=== PATIENT | male | born 1990 | race Caucasian/White ===

== ENCOUNTER 2017-12-05 18:36 | Inpatient (IN) | payer OTHER ==
[~2017-12-05] VITALS: Ht 175.3 cm; Wt 63.5 kg
--- NOTE | 2017-12-05 19:55 | NUR ---
PRE ADMISSION NOTE Pt is a 27 y/o male seen at intake. Pt is A&O x 4 and ambulatory with steady gait. Pt is here for ETOH (beer) 12 pack or more daily, Xanax 6 mg daily, methamphetamine 2-3 g daily, heroin IV or smoke 2 g daily. Pt has been using these substances for 1 month. Pt reports using meth, Xanax and drinking beer this morning, but last intake of heroin was last night around 1999. Pt denies allergies. Reports PMH of seizure r/t withdrawal from Xanax, Anxiety, and Depression. Pt reports taking Seroquel 100 mg, but denies brining any home medications. Vitals: BP 113/76, HR 105, 02 98%, RR 19, Pain 6/10 (generalized). Pt is stable. Will continue care of patient upon arrival on unit.
[2017-12-05] MEDS ORDERED: diphenhydrAMINE 50 MG CAPSULE PO PRN (21:00)
[2017-12-05] MEDS ORDERED: MAGNESIUM HYDROXIDE 30 ML LIQUID UDC PO PRN (21:00)
[2017-12-05] MEDS ORDERED: CLONIDINE HCL 0.1 MG TABLET PO PRN (21:00)
[2017-12-05] MEDS ORDERED: MIRALAX 17 GM POWD.PACK PO PRN (21:00)
[2017-12-05] MEDS ORDERED: THIAMINE HCL 200 MG/2 ML VIAL IM ONE (21:00)
[2017-12-05] MEDS ORDERED: HYDROXYZINE PAMOATE 25 MG CAPSULE PO PRN (21:00)
[2017-12-05] MEDS ORDERED: IBUPROFEN 600 MG TABLET PO PRN (21:00)
[2017-12-05] MEDS ORDERED: LORAZEPAM 1 MG TABLET PO PRN ×2 (21:00→21:45)
[2017-12-05] MEDS ORDERED: ONDANSETRON ODT 4 MG TAB.RAPDIS SL PRN (21:00)
[2017-12-05] MEDS ORDERED: LOPERAMIDE HCL 2 MG CAPSULE PO PRN ×2 (21:00)
[2017-12-05] MEDS ORDERED: MAG HYDROX/AL HYDROX/SIMETH 30 ML LIQUID UDC PO PRN (21:00)
[2017-12-05] MEDS ORDERED: LORAZEPAM 2 MG/1 ML VIAL IM PRN (21:00)
[2017-12-05] MEDS ORDERED: QUET100T PO (21:19)
[2017-12-05 21:20] LABS: *AMPHETAMINE, URINE POSITIVE (NEGATIVE); *BARBITURATE, URINE NEGATIVE (NEGATIVE); *CANNABINOID, URINE NEGATIVE (NEGATIVE); *COCCAINE, URINE NEGATIVE (NEGATIVE); *OPIATE, URINE NEGATIVE (NEGATIVE); *PHENCYCLIDINE SCREEN,URINE NEGATIVE (NEGATIVE)
[2017-12-05 21:24] LABS: BASOPHILS # (AUTO) 0.1 K/uL (0.0-8.0); BASOPHILS % (AUTO) 0.7 % (0.0-2.0); EOSINOPHILS # (AUTO) 0.9 K/uL (0.0-0.7); EOSINOPHILS % (AUTO) 11.7 % (0.0-7.0); HEMATOCRIT 46.3 % (36.7-47.1); HEMOGLOBIN 15.9 g/dL (12.5-16.3); LYMPHOCYTES # (AUTO) 2.9 K/uL (20.0-40.0); LYMPHOCYTES % (AUTO) 37.3 % (20.5-51.5); MEAN CORPUSCULAR HEMOGLOBIN 31.7 uug (23.8-33.4); MEAN CORPUSCULAR HGB CONC 35 g/dL (32.5-36.3); MEAN CORPUSCULAR VOLUME 91.9 fL (73.0-96.2); MONOCYTES # (AUTO) 0.7 K/uL (2.0-10.0); MONOCYTES % (AUTO) 9.5 % (0.0-11.0); NEUTROPHILS # (AUTO) 3.2 K/uL (1.8-8.9); NEUTROPHILS % (AUTO) 40.8 % (38.5-71.5); PLATELET COUNT (AUTO) 261 K/uL (152-348); RED BLOOD CELL COUNT(AUTO) 5.03 MIL/uL (4.06-5.63); WHITE BLOOD COUNT (AUTO) 7.9 K/uL (3.6-10.2)
[2017-12-05] MEDS ORDERED: BUPRENORPHINE HCL 2 MG TAB.SUBL SL PRN (21:45)
[2017-12-05] MEDS ORDERED: METHOCARBAMOL 750 MG TABLET PO PRN (21:45)
[2017-12-05 21:47] LABS: ALANINE AMINOTRANSFERASE 25 U/L (16-63); ALKALINE PHOSPHATASE 75 U/L (50-136); AMYLASE 38 U/L (25-115); ASPARTATE AMINOTRANSFERASE 24 U/L (15-37); BILIRUBIN,TOTAL 0.9 mg/dL (0.2-1.0); CARBON DIOXIDE 27 mmol/L (21-32); CHLORIDE 101 mmol/L (98-107); CREATININE 1.1 mg/dL (0.6-1.3); GLUCOSE 84 mg/dL (74-106); LIPASE 137 U/L (73-393); MAGNESIUM 2.5 mg/dL (1.8-2.4); POTASSIUM 3.7 mmol/L (3.5-5.1); TOTAL PROTEIN, SERUM 7.9 g/dL (6.4-8.2); UREA NITROGEN, BLOOD 20 mg/dL (7-18)
[2017-12-05 21:58] LABS: THYROID STIMULATING HORMONE 1.161 mIU/mL (0.358-3.740)
--- NOTE | 2017-12-05 22:00 | NUR ---
Admission note Patient is a 27 year old male who presents to [facility] for medically supervised withdrawal from ETOH/Benzo/Opiate . Patient requests for full code and regular diet. Patient reports PMH of Anxiety and Depression but he doesn't take any medication. Seizure history- last one was 2 years ago R/T withdrawal from Xanax. Overdose from Heroin a month ago, his friend gave him Narcan. Blackouts- at least once a month he states. Suicidal attempt when he was 24. He cut his wrist . No 5150 hold. No SI/HI. Patient states hes homeless. His mom is his support system. He is unemployed at this time. He was sober for 1 month then he relapsed a month ago. When asked why he is seeking for treatment, he states I dont want to , I dont want to go to group home and the only way I will live is if I get sober. The triggers for his relapsed was cravings, money, women and old friends thats using. The consequences of him using and drinking was he got arrested and he lost his car. Its not worth it , he states. He wants to stay sober , go to programs and get sponsor after this. Longest period of sobriety was 6 months 3 years ago. Substance History 1.Alcohol (beer)-started drinking at age 17. He drinks 12 pack 24 oz daily for a month . Last drink was 3-4 cans of 24oz of beer at 10am 2.Xanax started using at age 18. Patient takes 6 mg daily for a month. Last use was 6 mg on 12/05/17 3.Heroin (IV/Smoke)-started using at age 24. Patient smokes /injects 2 grams daily for a month. Last use was 2 grams on 12/04/17 at 8 PM 4. Methamphetamine (IV)-started using at age 19. Patient injects 2-3 grams daily for a month . Last use was 2 grams on 12/05/17 Treatment history [facility] Patient smokes 1 pack daily. He does not have PCP. Patient did not bring home medication but states hes taking Seroquel 100 mg for sleep. Typical withdrawal symptoms when hes is not using are nausea, difficulty sleeping , restless legs, hot and cold sweats and irritability. Patient refused pneumonia vaccine. UA provided and blood draw done. Patient presents with flat affect, worried, anxious, restless, generalized muscle aches, restless legs, hot and cold sweats, tremors, headache, pin and needles sensations, abdominal cramping and runny nose. COWS 15 and CIWA15. Encouraged fluids. Patient oriented to surroundings and how to use call light. Safety measures in place. Call light in reach. Will continue to monitor. Addendum: 12/06/17 at 1307 by BRAULIO NOONAN RN Clarification of Treatment History: Per patient, he was at [facility] from 10/24/17-11/24/17. States he was sober the entire time he was there. His substance use history as listed above is for 11 days, not 1 month.
--- NOTE | 2017-12-05 22:05 | NUR ---
COWS and CIWA assessment Patient presents with flat affect, worried, anxious, restless, generalized muscle aches, restless legs, hot and cold sweats, tremors, headache, pin and needles sensations, abdominal cramping and runny nose. COWS 15 and CIWA15.
--- NOTE | 2017-12-05 22:07 | NUR ---
PRN Robaxin, Motrin , Ativan and Subutex administration Patient presents with flat affect, worried, anxious, restless, generalized muscle aches, restless legs, hot and cold sweats, tremors, headache, pin and needles sensations, abdominal cramping and runny nose. COWS 15 and CIWA15.
[2017-12-05] MEDS: FOLIC ACID 1 MG TABLET PO SCH (22:08)
[2017-12-05] MEDS: MULTIVITAMINS,THERAPEUTIC TABLET PO SCH (22:09)
[2017-12-05] MEDS: THIAMINE HCL 100 MG TABLET PO SCH (22:09)
[2017-12-05 22:15] LABS: ETHANOL < 3 MG/DL (0-0)
--- NOTE | 2017-12-05 22:24 | NUR ---
One time Trazadone administration Patient requests for sleep aid. Will monitor for effectiveness
[2017-12-05] MEDS ORDERED: TRAZODONE 50 MG TABLET PO ONE (22:30)
--- NOTE | 2017-12-05 23:07 | NUR ---
PRN Robaxin, Motrin, Ativan and Subutex re-assessment Patient lying in bed with eyes closed. Respiration even and unlabored. No facial grimacing. Will monitor for effectiveness. CIWA deferred
--- NOTE | 2017-12-05 23:24 | NUR ---
PRN Trazadone re-assessment Patient lying in bed with eyes closed. Respiration even and unlabored. Will continue to monitor.
[2017-12-06] VITALS: BP 102/72
--- NOTE | 2017-12-06 | NUR ---
COWS and CIWA deferred Patient lying in bed with eyes closed. Respiration even and unlabored. Will continue to monitor.
[2017-12-06 04:00] VITALS: BP 109/67
--- NOTE | 2017-12-06 04:00 | NUR ---
COWS and CIWA deferred Patient lying in bed with eyes closed. Respiration even and unlabored. Will continue to monitor.
--- NOTE | 2017-12-06 07:21 | NUR ---
End of shift note Patient slept 6 hours. Fluid Intake 1,082 ml. Voided x 1. No BM. Monitored patient throughout shift. Patient presented with flat affect, worried, anxious, restless, generalized muscle aches, restless legs, hot and cold sweats, tremors, headache, pin and needles sensations, abdominal cramping and runny nose upon admission. PRN Motrin, Robaxin, Subutex and Ativan given. Last COWS 15 and CIWA 15.
--- NOTE | 2017-12-06 07:45 | NUR ---
START OF SHIFT Pt is a 27 yr old male, admitted on 12/05/17 for ETOH/Benzo/Opiate withdrawal and is to start of 5 day Valium taper as ordered. Received report from assembler 1st shift nurse. Pt received Ativan PRN, Motrin PRN,Robaxin PRN, Subutex PRN and Trazodone PRN during the night. Medication was effective Last COWS score was 15 and CIWA score was 15.Pt slept for 6 hrs and remains in bed sleeping with respirations even and unlabored. Skin is intact, warm and moist to touch. Pt is noted with multiple food wrappers and empty bottles of water at bed side table. Safety precautions observed. Will continue to monitor.
[2017-12-06 08:00] VITALS: BP 126/60
--- NOTE | 2017-12-06 08:20 | NUR ---
COWS AND CIWA ASSESSMENT Pt is c/o anxiety, agitation, restlessness, abdominal cramping, headache and sweats. Pt is observed fidgety. COWS score is 8 and CIWA score is 10. Will continue to monitor.
[2017-12-06] MEDS: THIAMINE HCL 100 MG TABLET PO SCH (08:55)
[2017-12-06] MEDS: MULTIVITAMINS,THERAPEUTIC TABLET PO SCH (08:55)
[2017-12-06] MEDS: BUPRENORPHINE HCL 2 MG TAB.SUBL SL SCH ×4 (08:55→20:26)
[2017-12-06] MEDS: FOLIC ACID 1 MG TABLET PO SCH (08:55)
[2017-12-06] MEDS ORDERED: 6 DAY PHENOBARBITAL TAPER -SERENITY PROTOCOL PO PRN (09:00)
[2017-12-06] MEDS ORDERED: PHENOBARBITAL 60 MG TABLET PO SCH (09:00)
[2017-12-06] MEDS ORDERED: TUBERCULIN,PURIF.PROT.DERIV. 5 TU/0.1 ML TEST ID ONE (09:00)
[2017-12-06] MEDS ORDERED: 5 DAY TAPER BUPRENORPHINE -SERENITY PROTOCOL SL PRN (09:00)
--- NOTE | 2017-12-06 09:00 | NUR ---
MEDICATION REFUSED Pt refused to take Phenobarbital 60mg PO as scheduled aty 0900. Pt states that he gets a reaction to the phenobarbital and starts to get an "itchy throat". Medication was held and was report to Dr. Reich. Will continue to f/u
[2017-12-06 12:00] VITALS: BP 106/50
[2017-12-06] MEDS ORDERED: 5 DAY TAPER VALIUM-SERENITY PROTOCOL PO PRN (12:30)
--- NOTE | 2017-12-06 12:35 | NUR ---
COWS AND CIWA ASSESSMENT Pt is c/o anxiety, agitation, restlessness, abdominal cramping, headache and sweats. Pt is observed fidgety. COWS score is 10 and CIWA score is 9. Phenobarbital taper was discontinued by Dr. Reich and is to start of 5 day Valium taper. Will continue to f/u.
[2017-12-06] MEDS: DIAZEPAM 10 MG TABLET PO SCH ×3 (13:17→20:26)
[2017-12-06 16:00] VITALS: BP 101/57
--- NOTE | 2017-12-06 19:15 | NUR ---
END OF SHIFT Pt is a 27 yr old male, AA&Ox4. pt was admitted on 12/05/17 for ETOH/Benzo/Opiate withdrawal and is on 5 day Valium and 5 day Subutex taper as ordered. Pt has been cooperative with medication regimen and plan of care. Pt was c/o anxiety, agitation, abdominal cramping, muscle aching, headache, restlessness, stuffy nose and teary eyes. No PRN's were given during the day. last COWS score was 8 and CIWA score was 5. Encouraged increase fluid intake for hydration. Endorsed to shift nurse manager nurse to continue with care.
--- NOTE | 2017-12-06 19:30 | NUR ---
Start of shift note Received report from day shift nurse. Patient is a 27 year old male admitted for ETOH/Benzo/Opiate withdrawal. Patient is on 5 day Valium and 5 day Subutex taper. Patient did not require PRN medication. Last COWS 8 and CIWA 5. Patient alert and oriented x 4. Patients room messy, snack wrappers and opened/spilled drinks on table. Patient presents with flat affect, anxious, restless, restless legs, irritable and agitation. Safety measures in place. Call light in reach. Will continue to monitor.
[2017-12-06 20:00] VITALS: BP 123/75
--- NOTE | 2017-12-06 20:00 | NUR ---
COWS and CIWA assessment Patient anxious, restless, restless legs, intermittent perspiration , tremors felt but not observed, irritable and agitation. COWS 9 and CIWA 9.
[2017-12-06] MEDS: QUETIAPINE FUMARATE 100 MG TABLET PO SCH (21:01)
[2017-12-07] VITALS: BP 124/88
--- NOTE | 2017-12-07 | NUR ---
COWS and CIWA deferred Patient lying in bed with eyes closed. Respiration even and unlabored. Will continue to monitor.
[2017-12-07 04:00] VITALS: BP 120/72
--- NOTE | 2017-12-07 04:00 | NUR ---
COWS and CIWA deferred Patient lying in bed with eyes closed. Respiration even and unlabored. Will continue to monitor.
--- NOTE | 2017-12-07 07:18 | NUR ---
End of shift note Patient slept 8 hours. Fluid intake 7 hours. Voided x 1. BM x 1. Patient presented with flat affect, anxious, restless, restless legs, irritable and agitation. Patient did not require PRN medication. Safety measures in place. Call light in reach. Will continue to monitor. Last COWS 9 and CIWA 9.
--- NOTE | 2017-12-07 07:30 | NUR ---
Start of Shift Pt. is a 27 y/o male admitted for the medically managed withdrawal from ETOH (Beer), Benzodiazepines (Xanax), and Opiates (Heroin). Pt. was also abusing methamphetamines concurrently with his other substance abuse. Pt. was placed on a 5 day valium taper and a 5 day subutex taper to manage his withdrawal symptoms. Endorse from previous shift pt. presented with a flat affect, anxiety, irritability, restless legs, and agitation. No PRNs given. Last COWs of 9 and CIWA of 9. Received pt. in room. Pt. laying in bed with his eyes closed. No signs of distress noted. Safety measures in place. Will continue to monitor pt.s behavior for safety.
[2017-12-07 08:00] VITALS: BP 121/78
--- NOTE | 2017-12-07 08:00 | NUR ---
COWS/CIWA Assessment COWS 10, CIWA 10. Pt. laying in bed and presents with diaphoresis, restlessness, nasal congestion, anxiety, and irritability. Will give pt. his medication regiment as ordered. Will continue to monitor pt.'s behavior for safety.
[2017-12-07 08:06] LABS: HEPATITIS B SURFACE AG Negative (Negative)
[2017-12-07] MEDS: THIAMINE HCL 100 MG TABLET PO SCH (08:08)
[2017-12-07] MEDS: FOLIC ACID 1 MG TABLET PO SCH (08:08)
[2017-12-07] MEDS: DIAZEPAM 10 MG TABLET PO SCH ×3 (08:08→20:27)
[2017-12-07] MEDS: MULTIVITAMINS,THERAPEUTIC TABLET PO SCH (08:08)
[2017-12-07] MEDS: BUPRENORPHINE HCL 2 MG TAB.SUBL SL SCH ×3 (08:09→20:27)
[2017-12-07] MEDS ORDERED: PHENOBARBITAL 60 MG TABLET PO SCH (09:00)
--- NOTE | 2017-12-07 09:45 | NUR ---
Therapist prompted client to attend all group therapy sessions.
[2017-12-07 12:00] VITALS: BP 124/69
--- NOTE | 2017-12-07 12:00 | NUR ---
COWS/CIWA Assessment COWS 10, CIWA 10. Pt. laying in bed and presents with diaphoresis, restlessness, nasal congestion, anxiety, and irritability. Pt. compliant with medication regiment. Will continue to monitor pt.'s behavior for safety.
[2017-12-07 16:00] VITALS: BP 116/82
--- NOTE | 2017-12-07 19:25 | NUR ---
End of Shift Pt. is a 27 y/o male admitted for the medically managed withdrawal from ETOH (Beer), Benzodiazepines (Xanax), and Opiates (Heroin). Pt. was also abusing methamphetamines concurrently with his other substance abuse. Pt. was placed on a 5 day valium taper and a 5 day subutex taper to manage his withdrawal symptoms. Throughout shift pt. presented with a flat affect, anxiety, irritability, restless legs, and agitation. No PRNs given. Safety measures in place. Will endorse pt.s care to oncoming shift
--- NOTE | 2017-12-07 19:50 | NUR ---
Start of Shift Note Received a 27 y/o male px, admitted for medically supervised withdrawal from ETOH, Xanax, and Heroin. He is also using methamphetamine. Px was placed on 5 day Valium and 5 day Subutex taper started on 12/06/2017. Px is tolerating them well. Last reported COWS 10 and CIWA 10 by AM shift nurse. During the rounds at 1950, px is awake on bed in right side lying position. Px appears anxious and depressed. He is disheveled. Some snacks and drinks noted on top of the bed side table. He states that his anxiety is 7/10 and has stomach cramps. He verbalizes that he might AMA tomorrow. Detox program was explained to the px. Bed on lowest position, side rails up 2x and call light within reach. Well continue to monitor
[2017-12-07 20:00] VITALS: BP 133/80
--- NOTE | 2017-12-07 20:00 | NUR ---
COWS 8 and CIWA 10 Upon assessment, px appears anxious and depressed. He states that his anxiety is 7/10 and has stomach cramps, stuffy nose, sweats and chills. will continue to monitor
[2017-12-07] MEDS: QUETIAPINE FUMARATE 100 MG TABLET PO SCH (20:27)
[2017-12-08] VITALS: BP 122/76
--- NOTE | 2017-12-08 | NUR ---
COWS and CIWA deferred COWS and CIWA deferred due to the px is asleep, to assess if the px is awake per doctor's order.will continue to monitor
[2017-12-08 04:00] VITALS: BP 125/77
--- NOTE | 2017-12-08 07:05 | NUR ---
End of Shift Note During the shift, px didnt receive any PRN medications. He slept most of the time. Oral intake 800 ml, voided 2x, No BM. Px slept for 9 hours. Last COWS 8 and CIWA 10. Bed on lowest position, side rails up 2x and call light within reach. Px endorsed to AM shift nurse.
--- NOTE | 2017-12-08 07:38 | NUR ---
START OF SHIFT Pt is a 27 old male, AA&OX4. Pt was admitted on 12/05/17 for ETOH/Benzo/Opiate withdrawal and is on 5 day Subutex and 5 day Valium taper as ordered. Received report from warehouse shift supervisor nurse. No PRN's were given during the night. Last COWS score was 8 and CIWA score was 10 during the night. Pt is awake at this time and stating he want to be discharged today. Pt states, "I want to talk to the doctor to discharge me today or if he can't then I want to leave AMA". Pt was redirected and educated on the importance of continuing with treatment. Pt agreed to stay at this time. Skin is intact, warm and moist to touch. Pt is c/o anxiety and agitation. Safety precautions observed. Will continue to monitor.
[2017-12-08 08:00] VITALS: BP 108/74
--- NOTE | 2017-12-08 08:45 | NUR ---
COWS AND CIWA ASSESSMENT Pt is observed with anxiety and agitation m/b difficulty staying still. Skin is warm and clammy to touch. pt continues to stating of leaving AMA. Pt was redirected. COWS score was 6 and CIWA score was 9. Will continue to monitor.
[2017-12-08] MEDS ORDERED: BUPRENORPHINE HCL 2 MG TAB.SUBL SL SCH ×2 (09:00→15:00)
[2017-12-08] MEDS ORDERED: PHENOBARBITAL 60 MG TABLET PO SCH (09:00)
[2017-12-08] MEDS: MULTIVITAMINS,THERAPEUTIC TABLET PO SCH (09:00)
[2017-12-08] MEDS: FOLIC ACID 1 MG TABLET PO SCH (09:00)
[2017-12-08] MEDS: DIAZEPAM 5 MG TABLET PO SCH ×2 (09:01→13:00)
[2017-12-08] MEDS: THIAMINE HCL 100 MG TABLET PO SCH (09:01)
[2017-12-08 12:00] VITALS: BP 110/78
--- NOTE | 2017-12-08 13:22 | NUR ---
AMA NOTE Pt has been insisting on leaving AMA throughout the morning and stating, "I don't want to be here". Pt was educated on the risk and benefits of leaving AMA by multiple staff members including Dr. Reich, Case management and engineer exhauster. Pt was able to verbalize understanding but continued to state, "I already know the risk, you can't convince me to stay". Pt was adamant on leaving AMA. No SI/HI noted. Pt was escorted off the unit at 1318 in stable condition. Pt left with all belongs and valuables. No home medication was brought.
[2017-12-09] MEDS ORDERED: BUPRENORPHINE HCL 2 MG TAB.SUBL SL SCH (09:00)
[2017-12-09] MEDS ORDERED: DIAZEPAM 5 MG TABLET PO SCH (09:00)
[2017-12-09] MEDS ORDERED: PHENOBARBITAL 60 MG TABLET PO SCH (09:00)
[2017-12-10] MEDS ORDERED: BUPRENORPHINE HCL 2 MG TAB.SUBL SL SCH (09:00)
[2017-12-10] MEDS ORDERED: PHENOBARBITAL 60 MG TABLET PO SCH (09:00)
[2017-12-10] MEDS ORDERED: DIAZEPAM 5 MG TABLET PO SCH (09:00)
[2017-12-11] MEDS ORDERED: PHENOBARBITAL 60 MG TABLET PO SCH (09:00)
== END 2017-12-08 13:18 | disposition left against medical advice (07) | DRG 894 ==
LOC: SRC 19:17
PROVIDERS: ADMIT Family Medicine Addiction Medicine; ATTEND Family Medicine Addiction Medicine
PROC: HZ2ZZZZ Detoxification Services for Substance Abuse Treatment (ICD-10-PCS; principal; 2017-12-05)
PROC: HZ31ZZZ Individual Counseling for Substance Abuse Treatment, Behavioral (ICD-10-PCS; 2017-12-07)
DX: F10.230 Alcohol dependence with withdrawal, uncomplicated (principal); F11.929 Opioid use, unspecified with intoxication, unspecified; Y90.9 Presence of alcohol in blood, level not specified; F17.210 Nicotine dependence, cigarettes, uncomplicated; Z59.0 Homelessness; Z91.5 Personal history of self-harm; Z91.89 Other specified personal risk factors, not elsewhere classified; F13.230 Sedative, hypnotic or anxiolytic dependence with withdrawal, uncomplicated; F15.23 Other stimulant dependence with withdrawal; F41.1 Generalized anxiety disorder; F32.9 Major depressive disorder, single episode, unspecified
CPT/HCPCS: 36415; 80307; 83690; 83735; 84443; 85025; 86580; 86592; 86705; 86803; 87340; 87806; A4663; G0480; J3411; J8499